=== PATIENT | female | born 1945 ===

== ENCOUNTER 2019-09-09 05:40 | Day surgery (SDC) | payer OTHER ==
[~2019-09-09 05:40] MED LIST: PAXIL20 MG; SYNTHROID112 MCG PO
== END 2019-09-09 19:10 | disposition home or self-care (01) ==
LOC: CIR.AMB 05:40
DX: M65.4 Radial styloid tenosynovitis [de Quervain] (principal)

== ENCOUNTER → 2022-09-14 | Outpatient (CLI) | payer OTHER | END | disposition home or self-care (01) | LOC: LAB 14:27 | PROVIDERS: ATTEND General Practice | DX: Z12.11 Encounter for screening for malignant neoplasm of colon (principal); E03.9 Hypothyroidism, unspecified; E78.1 Pure hyperglyceridemia; E55.9 Vitamin D deficiency, unspecified; D53.1 Other megaloblastic anemias, not elsewhere classified; I12.9 Hypertensive chronic kidney disease with stage 1 through stage 4 chronic kidney disease, or unspecified chronic kidney disease; S24.9XXA Injury of unspecified nerve of thorax, initial encounter; S22.32XA Fracture of one rib, left side, initial encounter for closed fracture ==

== ENCOUNTER 2023-06-19 09:37 | Outpatient (CLI) | payer OTHER ==
[2023-06-19 11:23] LABS: PH,URINE 7.5 (5.0-8.0); URINE APPEARANCE Clear; URINE BILIRRUBIN Negative (NEGATIVE); URINE BLOOD Negative; URINE COLOR Yellow; URINE GLUCOSE Negative (NEGATIVE); URINE LEUKOCYTE Negative; URINE NITRATE Negative; URINE PROTEIN Negative (NEGATIVE); URINE UROBILINOGEN 0.2 E.U./dl
[2023-06-19 11:25] LABS: HEMOGLOBIN 10.8 g/dL (12.0-15.00); MEAN CORPUSCULAR HEMOGLOBIN 28.8 pg (27.00-32.0); MEAN CORPUSCULAR HGB CONC 32.7 g/dl (32.0-36.0); PLATELET COUNT 251 K/uL (150-450); RED BLOOD COUNT 3.75 M/uL (4.00-6.00); RED CELL DISTRIBUTION WIDTH 16.7 % (11.5-14.5)
[2023-06-19 11:27] LABS: URINE BACTERIA 234.3 uL (0.0-1933); URINE EPITHELIAL CELLS 4.6 uL (0.0-38.8); URINE RBC 22.5 uL (0.0-20.8); URINE WBC 3.2 uL (0.0-23.2)
[2023-06-19 12:12] LABS: ALBUMIN 3.2 gm/dL (3.4-5.0); BILIRUBIN TOTAL 0.34 mg/dL (0.3-1.2); CALCIUM 8.5 mg/dL (8.5-10.1); CHOL HDL RATIO 2.6 (0-5.0); CREATININE SERUM 0.68 mg/dL (0.55-1.02); GFR 84.35; GLOBULINA 3.6 G/DL (2.4-3.5); POTASSIUM 4.49 mEq/L (3.5-5.1); T4 FREE 1.33 NG/ML (0.76-1.46); TOTAL PROTEIN 6.8 gm/dL (6.4-8.2); TSH 0.982 uIU/mL (0.358-3.74)
[2023-06-19 12:41] LABS: VITAMIN D3 25 HYDROXY 22.22 ng/ml (30-120)
== END 2023-06-19 14:01 | disposition home or self-care (01) ==
LOC: LAB 09:37
PROVIDERS: ATTEND Internal Medicine
DX: E11.65 Type 2 diabetes mellitus with hyperglycemia (principal); E03.8 Other specified hypothyroidism; E78.5 Hyperlipidemia, unspecified; I10 Essential (primary) hypertension; E55.9 Vitamin D deficiency, unspecified; E53.8 Deficiency of other specified B group vitamins

== ENCOUNTER 2023-10-22 15:11 | Outpatient (CLI) | payer OTHER ==
[2023-10-22 16:04] LABS: HEMATOCRIT 33.9 % (36.0-45.00); HEMOGLOBIN 10.9 g/dL (12.0-15.00); MEAN CELL VOLUME 86.1 fL (80.00-100.00); MEAN CORPUSCULAR HEMOGLOBIN 27.7 pg (27.00-32.0); MEAN CORPUSCULAR HGB CONC 32.2 g/dl (32.0-36.0); PLATELET COUNT 252 K/uL (150-450); RED BLOOD COUNT 3.94 M/uL (4.00-6.00)
[2023-10-22 16:36] LABS: ALBUMIN 3.4 gm/dL (3.4-5.0); BILIRUBIN TOTAL 0.32 mg/dL (0.3-1.2); CALCIUM 8.8 mg/dL (8.5-10.1); CREATININE SERUM 0.76 mg/dL (0.55-1.02); GFR 73.99; GLOBULINA 3.4 G/DL (2.4-3.5); POTASSIUM 4.06 mEq/L (3.5-5.1); T4 FREE 1.42 NG/ML (0.76-1.46); TOTAL PROTEIN 6.8 gm/dL (6.4-8.2); TSH 1.75 uIU/mL (0.358-3.74)
== END 2023-10-22 15:13 | disposition home or self-care (01) ==
LOC: LAB 15:11
PROVIDERS: ATTEND Internal Medicine
DX: E11.65 Type 2 diabetes mellitus with hyperglycemia (principal); E03.8 Other specified hypothyroidism; I10 Essential (primary) hypertension; E78.5 Hyperlipidemia, unspecified; E04.2 Nontoxic multinodular goiter

== ENCOUNTER 2023-10-22 15:34 | Outpatient (CLI) | payer OTHER | END 2023-10-22 15:37 | disposition home or self-care (01) | LOC: SONOGRAMA 15:34 | PROVIDERS: ATTEND Internal Medicine | DX: E04.2 Nontoxic multinodular goiter (principal) ==

== ENCOUNTER 2024-12-31 15:23 | Outpatient (CLI) | payer OTHER | END 2024-12-31 15:40 | disposition home or self-care (01) | LOC: MAMO-SONO 15:23 | PROVIDERS: ATTEND General Practice | DX: M75.100 Unspecified rotator cuff tear or rupture of unspecified shoulder, not specified as traumatic (principal); M75.121 Complete rotator cuff tear or rupture of right shoulder, not specified as traumatic; Z12.31 Encounter for screening mammogram for malignant neoplasm of breast; N64.4 Mastodynia; M15.0 Primary generalized (osteo)arthritis ==

== ENCOUNTER 2025-04-28 11:41 | Outpatient (CLI) | payer OTHER | END 2025-04-28 11:44 | disposition home or self-care (01) | LOC: MRI 11:41 | PROVIDERS: ATTEND General Practice | DX: M15.0 Primary generalized (osteo)arthritis (principal); M75.121 Complete rotator cuff tear or rupture of right shoulder, not specified as traumatic; M75.101 Unspecified rotator cuff tear or rupture of right shoulder, not specified as traumatic | CPT/HCPCS: 73218 ==